=== PATIENT | female | born 1975 | race Caucasian/White ===

== ENCOUNTER 2019-07-02 12:01 | Emergency (ER) | payer SELFPAY ==
[2019-07-02] MEDS ORDERED: Ketorolac Tromethamine 60 MG/2 ML VIAL ONE (13:57)
== END 2019-07-02 14:10 | disposition home or self-care (01) ==
LOC: ERS 12:01
DX: M54.5 Low back pain (principal); M54.2 Cervicalgia; F31.9 Bipolar disorder, unspecified
CPT/HCPCS: 96372; 99283; J1885